=== PATIENT | female | born 1940 | race Caucasian/White ===

== ENCOUNTER 2021-12-07 07:35 | Emergency (ER) | payer MEDICARE, BC ==
[2021-12-07] MEDS ORDERED: Acetaminophen 500 MG TAB ONE (08:09)
== END 2021-12-07 08:50 | disposition home or self-care (01) ==
LOC: CSHERS 07:35
DX: S00.83XA Contusion of other part of head, initial encounter (principal); I10 Essential (primary) hypertension; E78.5 Hyperlipidemia, unspecified; W19.XXXA Unspecified fall, initial encounter
CPT/HCPCS: 70450; 70486; 72125